=== PATIENT | female | born 1945 | race Caucasian/White ===

== ENCOUNTER 2022-04-22 10:48 | Emergency (ER) | payer BC ==
[2022-04-22] MEDS ORDERED: Sodium Chloride 0.9% 10 ML Syringe FLUSH PRN (11:05)
[2022-04-22] MEDS ORDERED: Aspirin 81 MG Tab.Chew PO ONE (11:30)
[2022-04-22] MEDS ORDERED: Alum Hydrox/Mag Hydrox/Simeth 30 ML, Lidocaine 2% 15 ML PO ONE ×2 (11:31)
[2022-04-22 12:08] LABS: ESTIMATED GFR 39 mL/min (>60)
[2022-04-22] MEDS ORDERED: Sodium Chloride 0.9% 1,000 ML IV STA (12:18)
[2022-04-22] MEDS ORDERED: Sucralfate 1 GM Tab PO ONE (12:24)
[2022-04-22] MEDS ORDERED: Pantoprazole 40 MG Vial IVPUSH ONE (12:24)
[2022-04-22 12:26] LABS: CORONAVIRUS COVID-19 NAA NEGATIVE (NEGATIVE)
[2022-04-22] MEDS ORDERED: Sodium Chloride 0.9% 100 ML IV SCH ×2 (12:30→13:45)
[2022-04-22] MEDS ORDERED: Iopamidol 755 Mg/ML 100 ML Bottle IVPUSH ONE ×2 (12:30→13:41)
[2022-04-22] MEDS ORDERED: Sodium Chloride 0.9% 10 ML Syringe FLUSH ONE (13:41)
== END 2022-04-22 15:10 | disposition home or self-care (01) ==
LOC: JD.ED 10:48
DX: R10.10 Upper abdominal pain, unspecified (principal); R10.13 Epigastric pain; E78.00 Pure hypercholesterolemia, unspecified; I10 Essential (primary) hypertension; E11.9 Type 2 diabetes mellitus without complications; Z79.899 Other long term (current) drug therapy; Z79.84 Long term (current) use of oral hypoglycemic drugs; Z20.822 Contact with and (suspected) exposure to COVID-19
CPT/HCPCS: 0240U; 36415; 71046; 71275; 74177; 80053; 81001; 83690; 84484; 85025; 85379; 86140; 93005; 96361; 96374; 99285; A9270; C9113; J3490; J7030; Q9967